=== PATIENT | male | born 1955 | race Caucasian/White ===

== ENCOUNTER 2019-06-13 00:56 | Day surgery (SDC) | payer OTHER, SELFPAY ==
[2019-06-01 12:27] VITALS: BP 129/79; PULSE 78; RESP 18; TEMP 36.7; O2SAT 97; BMI 27.4
[2019-06-13] VITALS (10 sets, daily range): BP systolic 110–147; BP diastolic 61–88; PULSE 68–81; RESP 12–16; TEMP 36.5–36.8; O2SAT 95–100; BMI 27.9
--- NOTE | ~2019-06-13 | XR_ITS ---
XR knee LT 2V DATE: 06/13/2019 15:42 INDICATION: Primary osteoarthritis of left knee; left partial knee replacement TECHNIQUE: Postoperative crosstable AP and lateral views COMPARISON: 04/28/2019 left knee FINDINGS: Status post medial compartment joint replacement. There is expected postoperative subcutan eous and intra-articular emphysema. There is ligia-articular spurring of the lateral compartment, but lateral compartment joint space is w ell preserved. There is moderate periarticular spurring of the patella. No radiopaque intra-articular loose body or chondrocalcinosis is detected. IMPRESSION: Status post medial compartment joint replacement Reviewed, dictated and finalized at location B. [employer]
[2019-06-13] MEDS: LACTATED RINGERS 1,000 ML 30 ML IV CONT ×2 (11:25→15:32)
--- NOTE | 2019-06-13 12:56 | P.PNAN_ITS ---
Anes - Initial Pre Proc Eval Procedure: Operation Date: 06/13/19 13:00 Proposed Procedures p Left Partial Knee Arthroplasty - Brodie Foreman MD Date/Time: 06/13/19 12:56 Surgeon: Brodie Foreman MD Pre Op Diagnosis: OA Left Knee Patient Data Age: 63 Gender: M Height: 5 ft 7 in Weight: 80 kg Last Vital Signs Temp 98 F 06/13/19 11:40 Pulse 77 06/13/19 11:40 Resp 16 06/13/19 11:40 BP 133/88 06/13/19 11:40 Pulse Ox 98 06/13/19 11:40 Allergies Allergy/AdvReac Type Severity Reaction Status Date / Time No Known Allergies Allergy Verified 06/13/19 11:05 Home Medications Medication Instructions Recorded Confirmed Type aspirin 81 mg tablet,delayed 81 mg PO QPM 04/28/19 06/13/19 History release finasteride 5 mg tablet 5 mg PO DAILY 04/28/19 06/13/19 History omega-3 fatty acids 1,000 mg 1,000 mg PO DAILY 04/28/19 06/13/19 History capsule tamsulosin 0.4 mg capsule 0.4 mg PO QNOON 04/28/19 06/13/19 History tadalafil 5 mg PO DAILY 06/01/19 06/13/19 History Patient hx anesthesia problems: none Family hx anesthesia problems: none [facility] Past Medical History Medical History Hypertension Osteoarthritis of left knee Surgical History Surgical History History of hernia repair (~05/14/17) History of partial knee replacement (~04/13/18) Social History Social History Smoking status: Never smoker Alcohol intake: current Anes - Eval Final PreProcedure Day of Procedure 06/13/19 12:56 Patient weight: normal Heart: regular rate and rhythm Lungs: clear to auscultation Airway: Mallampati scale class II Neurological: alert and oriented Last oral intake: >/= 8 hours ASA classification: II Emergent: no Anesthetic plan: proceed Anesthesia type and monitoring: general LMA and standard monitoring Informed Consent: The patient's anesthetic plan and its attendant risks and benefits were discussed with the patient/family/POA. Questions were solicited and answers provided to the satisfaction of the patient/family/POA.
--- NOTE | 2019-06-13 12:57 | WPDHPUPDATE1 ---
History and Physical Update Update Date/Time: 06/13/19 12:57 History and Physical has been reviewed, including an updated exam of the patient. There are NO changes in the patient's condition. Risks, benefits, and alternatives have been discussed and questions answered. Patient agrees to proceed with procedure.
[2019-06-13] MEDS: ceFAZolin 2 GM/D5W 50 ML 2 GM/50 ML BAG IVPB (13:31)
[2019-06-13] MEDS: GENTAMICIN BONE CEMENT REFOBACIN 1 EACH TOPICAL (14:45)
--- NOTE | 2019-06-13 15:51 | P.OP_ITS ---
Procedure Note - Detailed Date of procedure: 06/13/19 Pre-op diagnosis: OA Left Knee Post-op diagnosis: same Procedure performed: Partial knee arthroplasty, medial compartment. Implants: [employer]ath[employer] PKR X3 system tibial insert size #3, 9 mm thickness, femoral component size 3. Tibial base tibial base plate size 3. Anesthesia: GETA and regional (subsartorial block.) Surgeon: Brodie Foreman MD Estimated blood loss (mL): 100 Drains: No Complications: None Condition: stable Disposition: PACU Findings: The ACL was intact. Significant medial bone erosion. Lateral compartment benign. Operative details: The patient was given a general anesthetic. Preoperative antibiotics were given. The knee was prepped and draped in the usual sterile fashion. A longitudinal incision was created along the medial aspect of the patellar tendon. A minimally invasive optimized mid vastus approach was completed. No medial release was taken. The external alignment guide was used to cut the tibia with anatomic posterior slope. A 4 millimeter resection was taken. The spacer block technique was utilized to measure flexion and extension gaps after the osteophytes were removed. The difference was used to calculate the distal resection. The distal cutting block was utilized to cut the distal femur. The AP and chamfer block was utilized for this last cuts. The femur and tibia were sized. Range of motion and gap balancing was assessed. This was tested with the 1.5 millimeter spacer. The bony surfaces were cleaned with lavaged. Lug holes were drilled. The real components were cemented into posit ion. Excess cement was carefully removed. The tourniquet was released. Meticulous hemostasis was maintained. The wound was closed with interrupted 1 Vicryl suture followed by a running 0 Quill suture and 2-0 Quill suture. Steri- Strips are placed in the skin the patient was extubated and brought to recovery room in stable condition. There were no complications.
--- NOTE | 2019-06-13 17:13 | PC.NURSE ---
This patient, Juliocesar Pulliam, was admitted to 3 [facility] Surg Room 327-01. Patient/family oriented to hospital policies and general routines including ID bracelet, bed and alarms, visiting hours, pain management, procedures, bathroom and other care routines, personal items, smoking policy, room service/diet, and visiting hours. Valuables list has been completed. Information on how to activate the Rapid Response Team has been discussed. Patient/Family are encouraged to report perceived risks to care and to ask questions if they do not understand what they are told or what they should do.
[2019-06-13] MEDS: SODIUM CHLORIDE 0.9% IV 1,000 ML 125 ML IV CONT (17:30)
[2019-06-13] MEDS: ASPIRIN 81 MG ENTERIC TABLET PO (18:41)
[2019-06-13] MEDS: MELOXICAM 7.5 MG TABLET PO (18:42)
[2019-06-13] MEDS: DOCUSATE SODIUM 100 MG CAPSULE PO (20:42)
[2019-06-13] MEDS: FAMOTIDINE 20 MG TABLET PO (20:42)
[2019-06-13] MEDS: DIAZEPAM 5 MG TABLET PO (22:16)
[2019-06-14] VITALS: BP 123/65; PULSE 72; RESP 16; TEMP 36.2; O2SAT 97
[2019-06-14 06:00] VITALS: BP 143/71; PULSE 58; RESP 18; TEMP 36.3; O2SAT 98
[2019-06-14 06:26] LABS: Basophils Percent Auto 0.1 % (0.2-1.2); Hematocrit 42.6 % (42.0-52.0); Hemoglobin 15.6 g/dL (14.0-18.0); Immature Granulocyte Absolute 0.07 K/mm3 (0.00-0.031); Immature Granulocyte Percent A 0.6 % (0-0.5); Lymphocytes Absolute Auto 1.21 K/mm3 (0.9-3.2); Lymphocytes Percent Auto 10.3 % (18.3-44.2); Mean Corpuscular HGB Conc 36.6 g/dl (32-36); Mean Corpuscular Hemoglobin 31.1 pg (26-34); Mean Corpuscular Volume 84.9 fl (80-100); Monocytes Absolute Auto 0.6 K/mm3 (0.1-0.6); Monocytes Percent Auto 5.2 % (2.6-8.5); Neutrophils Absolute Auto 9.9 K/mm3 (1.3-6.7); Neutrophils Percent Auto 83.8 % (45.5-73.1); Platelet Count Result 184 k/mm3 (150-375); Red Blood Count 5.02 M/mm3 (4.6-6.20); Red Cell Distribution Width 11.8 % (11.5-14.5); White Blood Count 11.8 K/mm3 (4.5-10.0)
[2019-06-14 06:50] LABS: Blood Urea Nitrogen 14 mg/dL (9-20); Carbon Dioxide 25 mmol/L (22-30); Chloride 102 mmol/L (98-107); Estimated CRCL calculation 68 ml/min; Estimated Glomerular Filt Rate > 60; Glucose 110 mg/dL (75-110); Potassium 4.5 mmol/L (3.4-5.0); Sodium 135 mmol/L (137-145)
[2019-06-14] MEDS: FINASTERIDE 5 MG TABLET PO (08:58)
[2019-06-14] MEDS: ASPIRIN 81 MG ENTERIC TABLET PO (08:59)
[2019-06-14] MEDS: DOCUSATE SODIUM 100 MG CAPSULE PO (08:59)
[2019-06-14] MEDS: FAMOTIDINE 20 MG TABLET PO (08:59)
[2019-06-14] MEDS: MELOXICAM 7.5 MG TABLET PO (08:59)
[2019-06-14] MEDS: TAMSULOSIN HCL 0.4 MG CAPSULE PO (11:28)
--- NOTE | 2019-06-14 11:35 | P.PNAN_ITS ---
Anes - Prog Note Post-Op Date/Time: 06/14/19 11:35 Cardiovascular status: normal Respiratory status: normal Airway patency: baseline Mental status: baseline Post-Op hydration status: normal Vital Signs: Last Vital Signs Temp 36.3 C L 06/14/19 06:00 Pulse 58 L 06/14/19 06:00 Resp 18 06/14/19 06:00 BP 143/71 H 06/14/19 06:00 Pulse Ox 98 06/14/19 06:00 I/O: Intake & Output 06/13/19 06/14/19 06/14/19 23:59 07:59 15:59 Intake Total 890 1800 240 Output Total 275 2200 Balance 615 -400 240 Laboratory Tests 06/14/19 05:59 06/14/19 05:59 06/14/19 06/14/19 05:59 05:59 WBC 11.8 H RBC 5.02 Hgb 15.6 Hct 42.6 MCV 84.9 MCH 31.1 MCHC 36.6 H RDW 11.8 Plt Count 184 MPV 9.0 Immature Gran % (Auto) 0.6 H Neut % (Auto) 83.8 H Lymph % (Auto) 10.[address] % (Auto) 5.2 Eos % (Auto) 0.0 Baso % (Auto) 0.1 L Lymph # (Auto) 1.21 [facility] # (Auto) 0.6 Eos # (Auto) 0.0 Baso # (Auto) 0.0 Abs Immat Gran (auto) 0.07 H Absolute Neuts (auto) 9.9 H Absolute Nucleated RBC 0.0 Nucleated RBC % 0.0 Sodium 135 L Potassium 4.5 Chloride 102 Carbon Dioxide 25 BUN 14 Creatinine 0.90 Estim Creat Clear Calc 68 Estimated GFR > 60 Glucose 110 Calcium 9.0 Post-procedural complaints: none Patient Feedback: Patient satisfied with anesthetic care.
== END 2019-06-14 12:51 | disposition home or self-care (01) ==
LOC: ANHSURGERY 10:58 → ANH3MEDSUR 06-14 06:56
PROVIDERS: PCP Family Medicine; Visit Provider Orthopaedic Surgery
PROC: (CPT 27446; principal; 2019-06-13 13:00)
DX: M17.12 Unilateral primary osteoarthritis, left knee (principal); I10 Essential (primary) hypertension; Z79.82 Long term (current) use of aspirin
CPT/HCPCS: 27447; 36415; 73560; 80048; 85025; 97110; 97116; 97161; 97165; A9270; C1713; C1776; J0131; J0171; J0690; J1100; J1885; J2250; J2270; J2405; J2704; J2795; J3010; J7030; J7120